=== PATIENT | male | born 1950 | race Asian ===

== ENCOUNTER 2018-04-18 09:12 | Emergency (ER) | END 2018-04-18 10:46 | disposition left against medical advice (07) ==

== ENCOUNTER 2019-07-07 12:04 | Inpatient (IN) | payer OTHER ==
[~2019-07-07] VITALS: Ht 180.3 cm; Wt 109.7 kg
[~2019-07-07 12:04] MED LIST: ASPI-650 PO; ATOR10TA65 PO; CALC0.255 PO; CALC667C4; CARV12.579 PO; CINA30TA4 PO; CYAN100T35 PO; DONE10TA7 PO; ERGO500013 PO; FOLI-49; GABA300C16 PO; GLIM2TAB2 PO; IBUP-1544 PO; LINA5TAB PO; LISI-471 PO; MAGN500C PO; MEMA5TAB PO; METO10TA3 PO; MIRT15TA5 PO; MYCO500T3 PO; NEPH PO; ONDA4TAB8 PO; OXYB10TA6 PO; PANT40TA3 PO; SERT50TA PO; SIMV20TA21 PO; SVL800C; TACR0.5C PO; TACR1CAP PO
[2019-07-07] MEDS ORDERED: SOD CHLORIDE 0.9% 500 ML IV STA (12:23)
[2019-07-07] MEDS ORDERED: MAGNESIUM HYDROXIDE 30ML CUP PO PRN (16:30)
[2019-07-07] MEDS ORDERED: IBUPROFEN 600 MG TAB PO ONE (16:30)
[2019-07-07] MEDS ORDERED: DOCUSATE SODIUM 100 MG CAP PO PRN (16:30)
[2019-07-07] MEDS ORDERED: ONDANSETRON 4 MG INJ IV PRN (16:30)
[2019-07-07] MEDS ORDERED: ACETAMINOPHEN 325 MG TAB PO PRN (16:30)
[2019-07-07] MEDS ORDERED: HYDROCODONE/APAP (5/325) TAB PO PRN (16:30)
[2019-07-07] MEDS ORDERED: BISACODYL 10 MG SUPP PR PRN (16:30)
[2019-07-07] MEDS ORDERED: morphine 2 MG INJ IV PRN (16:30)
[2019-07-07] MEDS ORDERED: NACL 0.9% 3 ML SYG IV SCH (16:30)
[2019-07-07] MEDS ORDERED: GLUCOSE GEL 15 GRAM TUBE BUCCAL PRN (17:00)
[2019-07-07] MEDS ORDERED: GLUCOSE GEL 15 GRAM TUBE PO PRN ×2 (17:00)
[2019-07-07] MEDS ORDERED: GLUCAGON 1 MG INJ IM PRN (17:00)
[2019-07-07] MEDS ORDERED: DEXTROSE 50% 50 ML SYRINGE IV PRN ×2 (17:00)
[2019-07-07] MEDS: INSULIN GLARGINE [LANTus] (100 UNITS/ML) SYG SC SCH (20:00)
[2019-07-07] MEDS: INSULIN ASPART [NOVOLOG] 3 ML PEN SC SCH ×2 (21:30→22:09)
[2019-07-07 22:00] VITALS: Ht 180.3 cm; Wt 109.7 kg
[2019-07-07] MEDS: TACROLIMUS 0.5 MG CAP PO SCH (22:14)
[2019-07-07] MEDS: MYCOPHENOLATE 250 MG CAP PO SCH (22:14)
[2019-07-07] MEDS: MIRTAZAPINE 15 MG TAB PO SCH (22:15)
[2019-07-07] MEDS: ATORVASTATIN 10 MG TAB PO SCH (22:17)
[2019-07-08] VITALS (8 sets, daily range): BP systolic 112–141; BP diastolic 58–82; PULSE 51–65; RESP 16–18
[2019-07-08] MEDS: ACCU-CHEK XX SCH ×2 (02:00→21:00)
[2019-07-08] MEDS: PANTOPRAZOLE 40 MG INJ IV SCH (05:33)
[2019-07-08] MEDS: INSULIN ASPART [NOVOLOG] 3 ML PEN SC SCH ×4 (07:50→21:00)
[2019-07-08] MEDS ORDERED: IODIXANOL LOCM 100 ML BTL ONE (08:14)
[2019-07-08] MEDS ORDERED: SOD CHLORIDE 0.9% 100 ML ONE (08:14)
[2019-07-08] MEDS: DONEPEZIL 10 MG TAB PO SCH ×2 (09:00→12:58)
[2019-07-08] MEDS: CINACALCET 30 MG TAB PO SCH ×2 (09:00→13:00)
[2019-07-08] MEDS: OXYBUTYNIN (XL) 5 MG TAB PO SCH ×2 (09:00→12:59)
[2019-07-08] MEDS: CYANOCOBALAMIN 100 MCG TAB PO SCH ×2 (09:00→12:58)
[2019-07-08] MEDS: MYCOPHENOLATE 250 MG CAP PO SCH ×3 (09:00→21:02)
[2019-07-08] MEDS: CALCITRIOL 0.25 MCG CAP PO SCH ×2 (09:00→12:58)
[2019-07-08] MEDS: SERTRALINE 50 MG TAB PO SCH ×2 (09:00→12:58)
[2019-07-08] MEDS: TACROLIMUS 1 MG CAP PO SCH ×2 (10:59→12:59)
[2019-07-08] MEDS ORDERED: MAGNESIUM OXIDE 400 MG TAB PO ONE (11:00)
[2019-07-08] MEDS ORDERED: FENTAnyl 50 MCG/ML VIAL ONE (11:08)
[2019-07-08] MEDS ORDERED: MIDAZOLAM 1 MG/ML 2 ML INJ ONE ×2 (11:08)
[2019-07-08] MEDS: SOD CHLORIDE 0.9% 1,000 ML IV SCH (16:23)
[2019-07-08] MEDS: ACETYLCYSTEINE 600 MG CAP PO SCH ×2 (17:22→22:29)
[2019-07-08] MEDS: MIRTAZAPINE 15 MG TAB PO SCH (21:02)
[2019-07-08] MEDS: TACROLIMUS 0.5 MG CAP PO SCH (21:02)
[2019-07-08] MEDS: ATORVASTATIN 10 MG TAB PO SCH (21:02)
[2019-07-08] MEDS: INSULIN GLARGINE [LANTus] (100 UNITS/ML) SYG SC SCH (21:17)
[2019-07-09] MEDS: ACCU-CHEK XX SCH ×5 (02:00→20:35)
[2019-07-09 02:05] VITALS: BP 135/74; PULSE 60; RESP 18
[2019-07-09] MEDS: SOD CHLORIDE 0.9% 1,000 ML IV SCH ×3 (04:20→20:37)
[2019-07-09] MEDS: PANTOPRAZOLE 40 MG INJ IV SCH (05:46)
[2019-07-09] MEDS: INSULIN ASPART [NOVOLOG] 3 ML PEN SC SCH ×7 (07:50→20:35)
[2019-07-09 08:21] VITALS: BP 130/72; PULSE 52; RESP 18
[2019-07-09] MEDS: CYANOCOBALAMIN 100 MCG TAB PO SCH ×2 (09:00→09:20)
[2019-07-09] MEDS: LINAGLIPTIN 5 MG TABLET PO SCH (09:19)
[2019-07-09] MEDS: OXYBUTYNIN (XL) 5 MG TAB PO SCH (09:20)
[2019-07-09] MEDS: SERTRALINE 50 MG TAB PO SCH (09:20)
[2019-07-09] MEDS: MYCOPHENOLATE 250 MG CAP PO SCH ×2 (09:20→20:33)
[2019-07-09] MEDS: CINACALCET 30 MG TAB PO SCH (09:20)
[2019-07-09] MEDS: CALCITRIOL 0.25 MCG CAP PO SCH (09:20)
[2019-07-09] MEDS: TACROLIMUS 1 MG CAP PO SCH (09:20)
[2019-07-09] MEDS: DONEPEZIL 10 MG TAB PO SCH (09:21)
[2019-07-09] MEDS: POTASSIUM CHLORIDE (SR) 20 MEQ TAB PO SCH ×2 (16:32→20:33)
[2019-07-09 20:12] VITALS: BP 119/62; PULSE 62; RESP 18
[2019-07-09] MEDS: INSULIN GLARGINE [LANTus] (100 UNITS/ML) SYG SC SCH (20:34)
[2019-07-09] MEDS: ATORVASTATIN 10 MG TAB PO SCH (20:34)
[2019-07-09] MEDS: MIRTAZAPINE 15 MG TAB PO SCH (20:34)
[2019-07-09] MEDS: TACROLIMUS 0.5 MG CAP PO SCH (20:35)
[2019-07-10] MEDS: ACCU-CHEK XX SCH ×6 (01:33→21:13)
[2019-07-10] MEDS: PANTOPRAZOLE 40 MG INJ IV SCH (06:15)
[2019-07-10 07:54] VITALS: BP 125/73; PULSE 73; RESP 15
[2019-07-10] MEDS: INSULIN ASPART [NOVOLOG] 3 ML PEN SC SCH ×7 (09:00→21:00)
[2019-07-10] MEDS: TACROLIMUS 1 MG CAP PO SCH (09:04)
[2019-07-10] MEDS: SERTRALINE 50 MG TAB PO SCH (09:05)
[2019-07-10] MEDS: CALCITRIOL 0.25 MCG CAP PO SCH (09:05)
[2019-07-10] MEDS: MYCOPHENOLATE 250 MG CAP PO SCH ×2 (09:05→20:17)
[2019-07-10] MEDS: CYANOCOBALAMIN 100 MCG TAB PO SCH (09:05)
[2019-07-10] MEDS: OXYBUTYNIN (XL) 5 MG TAB PO SCH (09:06)
[2019-07-10] MEDS: HEPARIN 5,000 UNIT/1 ML VIAL SC SCH ×2 (09:15→20:28)
[2019-07-10] MEDS: DONEPEZIL 10 MG TAB PO SCH (09:39)
[2019-07-10] MEDS: LINAGLIPTIN 5 MG TABLET PO SCH (09:39)
[2019-07-10 15:48] VITALS: BP 130/73; PULSE 60; RESP 16
[2019-07-10 19:08] VITALS: BP 136/83; PULSE 79; RESP 20
[2019-07-10] MEDS: TACROLIMUS 0.5 MG CAP PO SCH (20:16)
[2019-07-10] MEDS: ATORVASTATIN 10 MG TAB PO SCH (20:17)
[2019-07-10] MEDS: MIRTAZAPINE 15 MG TAB PO SCH (20:18)
[2019-07-10] MEDS: INSULIN GLARGINE [LANTus] (100 UNITS/ML) SYG SC SCH (20:28)
[2019-07-10] MEDS: SOD CHLORIDE 0.9% 1,000 ML IV SCH (21:03)
[2019-07-11 03:00] VITALS: BP 137/86; PULSE 81; RESP 18
[2019-07-11] MEDS: PANTOPRAZOLE 40 MG INJ IV SCH (05:06)
[2019-07-11 07:33] VITALS: BP 124/74; PULSE 48; RESP 15
[2019-07-11] MEDS: INSULIN ASPART [NOVOLOG] 3 ML PEN SC SCH ×7 (07:50→21:00)
[2019-07-11] MEDS: ACCU-CHEK XX SCH ×4 (08:40→21:23)
[2019-07-11] MEDS: LINAGLIPTIN 5 MG TABLET PO SCH (08:45)
[2019-07-11] MEDS: HEPARIN 5,000 UNIT/1 ML VIAL SC SCH ×2 (08:45→21:15)
[2019-07-11] MEDS: SERTRALINE 50 MG TAB PO SCH (08:45)
[2019-07-11] MEDS: MYCOPHENOLATE 250 MG CAP PO SCH (08:45)
[2019-07-11] MEDS: DONEPEZIL 10 MG TAB PO SCH (08:45)
[2019-07-11] MEDS: TACROLIMUS 1 MG CAP PO SCH (08:46)
[2019-07-11] MEDS: OXYBUTYNIN (XL) 5 MG TAB PO SCH (08:46)
[2019-07-11] MEDS: CYANOCOBALAMIN 100 MCG TAB PO SCH (08:46)
[2019-07-11] MEDS: CALCITRIOL 0.25 MCG CAP PO SCH (08:46)
[2019-07-11 14:29] VITALS: BP 129/72; PULSE 64; RESP 18
[2019-07-11 19:50] VITALS: BP 116/63; PULSE 63; RESP 18
[2019-07-11] MEDS: INSULIN GLARGINE [LANTus] (100 UNITS/ML) SYG SC SCH (21:14)
[2019-07-11] MEDS: ATORVASTATIN 10 MG TAB PO SCH (21:18)
[2019-07-11] MEDS: TACROLIMUS 0.5 MG CAP PO SCH (21:18)
[2019-07-11] MEDS: MIRTAZAPINE 15 MG TAB PO SCH (21:18)
[2019-07-12] MEDS: ACCU-CHEK XX SCH ×5 (02:00→20:24)
[2019-07-12 02:52] VITALS: BP 116/56; PULSE 50; RESP 18
[2019-07-12] MEDS: PANTOPRAZOLE (EC) 40 MG TAB PO SCH (06:34)
[2019-07-12] MEDS: INSULIN ASPART [NOVOLOG] 3 ML PEN SC SCH ×7 (08:56→20:24)
[2019-07-12] MEDS: SERTRALINE 50 MG TAB PO SCH (08:57)
[2019-07-12] MEDS: OXYBUTYNIN (XL) 5 MG TAB PO SCH (08:57)
[2019-07-12] MEDS: HEPARIN 5,000 UNIT/1 ML VIAL SC SCH ×2 (08:57→20:24)
[2019-07-12] MEDS: DONEPEZIL 10 MG TAB PO SCH (08:59)
[2019-07-12] MEDS: TACROLIMUS 1 MG CAP PO SCH (08:59)
[2019-07-12] MEDS: CALCITRIOL 0.25 MCG CAP PO SCH (08:59)
[2019-07-12] MEDS: LINAGLIPTIN 5 MG TABLET PO SCH (09:00)
[2019-07-12] MEDS: CYANOCOBALAMIN 100 MCG TAB PO SCH (09:00)
[2019-07-12 10:15] VITALS: BP 112/70; PULSE 58; RESP 18
[2019-07-12 16:22] VITALS: BP 139/68; PULSE 59; RESP 18
[2019-07-12] MEDS: SOD CHLORIDE 0.9% 1,000 ML IV SCH (19:10)
[2019-07-12 20:11] VITALS: BP 134/71; PULSE 59; RESP 18
[2019-07-12] MEDS: ATORVASTATIN 10 MG TAB PO SCH (20:13)
[2019-07-12] MEDS: MIRTAZAPINE 15 MG TAB PO SCH (20:13)
[2019-07-12] MEDS: TACROLIMUS 0.5 MG CAP PO SCH (20:17)
[2019-07-12] MEDS: INSULIN GLARGINE [LANTus] (100 UNITS/ML) SYG SC SCH (20:23)
[2019-07-13] MEDS: ACCU-CHEK XX SCH ×3 (02:00→12:21)
[2019-07-13 02:41] VITALS: BP 117/64; PULSE 56; RESP 18
[2019-07-13] MEDS: PANTOPRAZOLE (EC) 40 MG TAB PO SCH (06:03)
[2019-07-13 07:33] VITALS: BP 133/71; PULSE 51; RESP 18
[2019-07-13] MEDS: INSULIN ASPART [NOVOLOG] 3 ML PEN SC SCH ×4 (07:50→12:27)
[2019-07-13] MEDS: LINAGLIPTIN 5 MG TABLET PO SCH (08:40)
[2019-07-13] MEDS: CALCITRIOL 0.25 MCG CAP PO SCH (08:41)
[2019-07-13] MEDS: TACROLIMUS 1 MG CAP PO SCH (08:41)
[2019-07-13] MEDS: DONEPEZIL 10 MG TAB PO SCH (08:41)
[2019-07-13] MEDS: SERTRALINE 50 MG TAB PO SCH (08:41)
[2019-07-13] MEDS: CYANOCOBALAMIN 100 MCG TAB PO SCH (08:41)
[2019-07-13] MEDS: OXYBUTYNIN (XL) 5 MG TAB PO SCH (08:42)
[2019-07-13] MEDS: HEPARIN 5,000 UNIT/1 ML VIAL SC SCH (08:47)
[2019-07-13] MEDS: SOD CHLORIDE 0.9% 1,000 ML IV SCH (13:52)
[2019-07-13 14:19] VITALS: BP 114/66; PULSE 60; RESP 18
== END 2019-07-13 15:12 | disposition home or self-care (01) | DRG 436 ==
LOC: E/R 12:04 → MS1 15:39
PROVIDERS: ADMIT Internal Medicine; ATTEND Internal Medicine
PROC: 0FB13ZX Excision of Right Lobe Liver, Percutaneous Approach, Diagnostic (ICD-10-PCS; principal; 2019-07-08)
DX: C22.8 Malignant neoplasm of liver, primary, unspecified as to type (principal); N17.9 Acute kidney failure, unspecified; T86.19 Other complication of kidney transplant; B19.10 Unspecified viral hepatitis B without hepatic coma; N28.89 Other specified disorders of kidney and ureter; E83.42 Hypomagnesemia; I10 Essential (primary) hypertension; E11.9 Type 2 diabetes mellitus without complications; Z85.46 Personal history of malignant neoplasm of prostate; Z92.3 Personal history of irradiation; Z87.891 Personal history of nicotine dependence; E66.9 Obesity, unspecified; Z68.33 Body mass index [BMI] 33.0-33.9, adult; E78.2 Mixed hyperlipidemia; Z79.899 Other long term (current) drug therapy; F03.90 Unspecified dementia, unspecified severity, without behavioral disturbance, psychotic disturbance, mood disturbance, and anxiety; F32.9 Major depressive disorder, single episode, unspecified
CPT/HCPCS: 36415; 71045; 74160; 74176; 77012; 80048; 80053; 80061; 80197; 81003; 82105; 82378; 82784; 82962; 83036; 83615; 83690; 83735; 84100; 84155; 84165; 84436; 84443; 84479; 84484; 84560; 85025; 85610; 85730; 86301; 86320; 86704; 86706; 86803; 87086; 87340; 88307; 88313; 88341; 88342; 93005; C9113; J1644; J1815; J2250; J3010; J7030; J7040; J7507; J7517; Q9967